=== PATIENT | male | born 1990 | race Caucasian/White ===

== ENCOUNTER 2016-12-15 06:54 | Observation (INO) | payer SELFPAY ==
[2016-12-15 07:10] VITALS: BMI 18.9
--- NOTE | 2016-12-15 10:17 | ED PDOC ---
HPI: Psych/Substance Abuse Time Seen by Provider: 12/15/16 07:13 Chief Complaint (Nursing): Alcohol Ingestion Chief Complaint (Provider): ETOH Intoxication ED Caveat: Intoxicated History Per: Patient History/Exam Limitations: intoxication (Alcohol Intoxication) Current Symptoms Are (Timing): Still Present Modifying Factor(s): Alcohol Additional Complaint(s): Shon Pitt, a 26 year old male, is brought into the ED for alcohol intoxication. History is limited due to patients intoxicated state. The patient was walking home when he was picked up by [employer] because he was intoxicated. Past Medical History Reviewed: Historical Data, Nursing Documentation, Vital Signs Vital Signs: Last Vital Signs Temp 98.9 F 12/15/16 07:10 Pulse 97 H 12/15/16 07:10 Resp 16 12/15/16 07:10 BP 141/91 H 12/15/16 07:10 Pulse Ox 96 12/15/16 07:10 - Medical History PMH: No Chronic Diseases - Surgical History Surgical History: No Surg Hx - Family History Family History: States: Unknown Family Hx - Home Medications Home Medications: Ambulatory Orders Medication Instructions Recorded No Known Home Med 12/15/16 - Allergies Allergies/Adverse Reactions: Allergies Allergy/AdvReac Type Severity Reaction Status Date / Time No Known Allergies Allergy Verified 12/15/16 07:10 Review of Systems ROS Statement: Except As Marked, All Systems Reviewed And Found Negative ( History cannot be obtained due to patients intoxicated state.) Physical Exam - Reviewed Nursing Documentation Reviewed: Yes Vital Signs Reviewed: Yes - Physical Exam Appears: Positive for: Non-toxic, No Acute Distress Head Exam: Positive for: ATRAUMATIC, NORMAL INSPECTION, NORMOCEPHALIC Skin: Positive for: Normal Color, Warm, Dry Eye Exam: Positive for: Normal appearance, EOMI, PERRL ENT: Positive for: Normal ENT Inspection Neck: Positive for: Normal, Painless ROM, Supple Cardiovascular/Chest: Positive for: Regular Rate, Rhythm, Chest Non Tender. Negative for: Tachycardia Respiratory: Positive for: Normal Breath Sounds. Negative for: Wheezing, Respiratory Distress Gastrointestinal/Abdominal: Positive for: Normal Exam, Bowel Sounds. Negative for: Tenderness, Guarding, Rebound Back: Positive for: Normal Inspection Extremity: Positive for: Normal ROM. Negative for: Tenderness, Pedal Edema, Deformity, Swelling Neurologic/Psych: Positive for: Alert, Oriented, Gait. Negative for: Motor/ Sensory Deficits - ECG O2 Sat by Pulse Oximetry: 96 (RA) Pulse Ox Interpretation: Normal Medical Decision Making Medical Decision Makin Initial Impression: 26 year old male presenting with alcohol intoxication Initial Plan: * ED Observation 7:23 * Alcohol serum * Alcohol Serum * 12:16 A&O x3 Patient is medically stable and will be discharged home. Scribe Attestation Documented by Iliana Bello acting as a scribe for Karissa Lomas MD. Provider Attestation All medical record entries made by the Scribe were at my direction and personally dictated by me. I have reviewed the chart and agree that the record accurately reflects my personal performance of the history, physical exam, medical decision making, and the department course for this patient. I have also personally directed, reviewed, and agree with the discharge instructions and disposition. ED OBSERVATION Date of observation admission: 12/15/16 Time of observation admission: 07:23 - Observation admission statement Patient is being placed in observation because:: Pending sobriety. - Progress Note Progress Note: 12/15/16 10:22 Patient is resting peacefully. 12/15/16 12:11 Patient is resting comfortably. Disposition - Patient ED Disposition Is Patient to be Admitted: No Counseled Patient/Family Regarding: Studies Performed - Disposition Disposition: Routine/Home Disposition Time: 12:17 Condition: STABLE
[2016-12-15 12:35] VITALS: BP 122/76; PULSE 76; RESP 18; TEMP 97.4; O2SAT 98
== END 2016-12-15 12:36 | disposition home or self-care (01) ==
LOC: H.ER 06:54 → H.EROBSV 07:23
PROVIDERS: ADMIT Emergency Medicine; ATTEND Emergency Medicine
DX: F10.129 Alcohol abuse with intoxication, unspecified (principal); Y90.7 Blood alcohol level of 200-239 mg/100 ml
CPT/HCPCS: 99282; G0378; G0480